=== PATIENT | female | born 1955 | race Caucasian/White ===

== ENCOUNTER 2016-10-22 07:10 | Emergency (ER) | payer BC, OTHER ==
[2016-10-22 07:23] VITALS: BP 120/91
--- NOTE | 2016-10-22 07:38 | EDM.PDOC ---
ED HPI GENERAL MEDICAL PROBLEM - General Chief Complaint: Upper Extremity Injury/Pain Stated Complaint: SHOOTING PAIN, LEFT ARM Time Seen by Provider: 10/22/16 07:32 Source of Information: Reports: Patient History Limitations: Reports: No Limitations - History of Present Illness INITIAL COMMENTS - FREE TEXT/NARRATIVE: 61 yo female presents with left arm pain since this morning. States that the pain woke her from her sleep. Described pain as sharp and radiates down arm at times and occasionally up to her neck. Denies chest pain or shortness of breath. Pain increases with lifting arm at times. No other complaints. 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: Reports: Aspirin, NSAIDS Left Upper Arm Pain Score (Numeric/FACES): 5 - Related Data Allergies Allergy/AdvReac Type Severity Reaction Status Date / Time No Known Allergies Allergy Verified 10/22/16 07:26 Home Meds: Home Meds FLUoxetine [PROzac] 20 mg PO DAILY 10/22/16 [History] Fexofenadine/Pseudoephedrine [Carolyn-D 12 Hour Tablet] 1 tab PO PRN 10/22/16 [ History] Levothyroxine [Synthroid] 100 mcg PO DAILY 10/22/16 [History] Zolpidem Tartrate [Zolpidem Tartrate] 10 mg PO PRN 10/22/16 [History] Past Medical History HEENT History: Reports: Impaired Vision - Past Surgical History Female Surgical History: Reports: Tubal Ligation Social & Family History - Tobacco Use Smoking Status *Q: Former Smoker Used Tobacco, but Quit: Yes Month Tobacco Last Used: 2012 - Recreational Drug Use Recreational Drug Use: No Review of Systems - Review of Systems Review Of Systems: ROS reveals no pertinent complaints other than HPI. ED EXAM, GENERAL - Physical Exam Exam: See Below Exam Limited By: No Limitations General Appearance: Alert, WD/WN, No Apparent Distress Eye Exam: Bilateral Eye: EOMI, PERRL Head: Atraumatic, Normocephalic Neck: Normal Inspection, Supple, Non-Tender, Full Range of Motion Respiratory/Chest: No Respiratory Distress, Lungs Clear, Normal Breath Sounds, No Accessory Muscle Use, Chest Non-Tender Cardiovascular: Normal Peripheral Pulses, Regular Rate, Rhythm, No Edema, No Gallop, No JVD, No Murmur, No Rub GI/Abdominal: Normal Bowel Sounds, Soft, Non-Tender, No Organomegaly, No Distention, No Abnormal Bruit, No Mass Extremities: Normal Inspection, Non-Tender, No Pedal Edema, Normal Capillary Refill, Arm Pain (nn tender to palpation but pain with movement), Limited Range of Motion Neurological: Alert, Oriented, CN II-XII Intact, Normal Cognition, Normal Gait, Normal Reflexes, No Motor/Sensory Deficits Skin Exam: Warm, Dry, Intact, Normal Color, No Rash Lymphatic: No Adenopathy Course - Vital Signs Last Recorded V/S: Last Vital Signs Temp 97.8 F 10/22/16 07:22 Pulse 88 10/22/16 07:22 Resp 16 10/22/16 07:22 BP 120/91 H 10/22/16 07:22 Pulse Ox 99 10/22/16 07:22 - Orders/Labs/Meds Orders: Active Orders 24 hr Category Date Time Status Cardiac Monitoring [RC] . DIRECTED Care 10/22/16 07:44 Active EKG Documentation Completion [RC] STAT Care 10/22/16 07:43 Active THYROXINE (T4) [REF] Stat Lab 10/22/16 07:52 Received Orphenadrine [Norflex] Med 10/22/16 08:30 Active 60 mg IM Q12H Sodium Chloride 0.9% [Saline Flush] Med 10/22/16 07:49 Active 10 ml FLUSH ASDIRECTED PRN Saline Lock Insert [OM.PC] Stat Oth 10/22/16 07:49 Ordered Medication Orders Orphenadrine Citrate (Norflex) 60 mg IM Q12H [facility] Last Admin: 10/22/16 08:47 Dose: 60 mg Sodium Chloride (Saline Flush) 10 ml FLUSH ASDIRECTED PRN PRN Reason: Keep Vein Open Last Admin: 10/22/16 08:48 Dose: 10 ml Labs: Laboratory Tests 10/22/16 10/22/16 10/22/16 Range/Units 07:52 07:52 07:52 WBC 5.4 (5.0-10.0) 10^3/uL RBC 4.95 (4.2-5.4) 10^6/uL Hgb 14.8 (12.0-16.0) g/dL Hct 44.9 (37.0-47.0) % MCV 90.7 (80-100) fL MCH 29.9 (27.0-34.0) pg MCHC 33.0 (33.0-35.0) g/dL Plt Count 223 (150-450) 10^3/uL Neut % (Auto) 57.4 (42.2-75.2) % Lymph % (Auto) 30.0 (20.5-50.1) % Loup % (Auto) 10.0 H (2-8) % Eos % (Auto) 2.2 (1.0-3.0) % Baso % (Auto) 0.4 (0.0-1.0) % PT (9.0-12.0) SEC INR (0.9-1.2) Sodium 140 (135-145) mmol/L Potassium 4.7 (3.6-5.0) mmol/L Chloride 106 (101-111) mmol/L Carbon Dioxide 27.0 (21.0-31.0) mmol/L Anion Gap 11.7 BUN 25 H (7-18) mg/dL Creatinine 1.0 (0.6-1.3) mg/dL Est Cr Clr Drug Dosing 56.71 mL/min Estimated GFR (MDRD) 57 BUN/Creatinine Ratio 25.00 Glucose 90 (74-105) mg/dL Calcium 9.0 (8.4-10.2) mg/dl Magnesium 2.0 (1.8-2.5) mg/dL Total Bilirubin 0.4 (0.2-1.0) mg/dL AST 24 (10-42) IU/L ALT 18 (10-60) IU/L Alkaline Phosphatase 50 (42-121) IU/L Creatine Kinase 72 (26-174) IU/L Creatine Kinase Index 1.8 (0-2.4) % CK-MB (CK-2) 1.30 (0.4-4.7) ng/mL Troponin I < 0.02 (0.00-0.02) ng/ml Total Protein 6.6 L (6.7-8.2) g/dl Albumin 4.0 (3.2-5.5) g/dl Globulin 2.6 Albumin/Globulin Ratio 1.54 10/22/16 Range/Units 07:52 WBC (5.0-10.0) 10^3/uL RBC (4.2-5.4) 10^6/uL Hgb (12.0-16.0) g/dL Hct (37.0-47.0) % MCV (80-100) fL MCH (27.0-34.0) pg MCHC (33.0-35.0) g/dL Plt Count (150-450) 10^3/uL Neut % (Auto) (42.2-75.2) % Lymph % (Auto) (20.5-50.1) % Loup % (Auto) (2-8) % Eos % (Auto) (1.0-3.0) % Baso % (Auto) (0.0-1.0) % PT 9.3 (9.0-12.0) SEC INR 0.9 (0.9-1.2) Sodium (135-145) mmol/L Potassium (3.6-5.0) mmol/L Chloride (101-111) mmol/L Carbon Dioxide (21.0-31.0) mmol/L Anion Gap BUN (7-18) mg/dL Creatinine (0.6-1.3) mg/dL Est Cr Clr Drug Dosing mL/min Estimated GFR (MDRD) BUN/Creatinine Ratio Glucose (74-105) mg/dL Calcium (8.4-10.2) mg/dl Magnesium (1.8-2.5) mg/dL Total Bilirubin (0.2-1.0) mg/dL AST (10-42) IU/L ALT (10-60) IU/L Alkaline Phosphatase (42-121) IU/L Creatine Kinase (26-174) IU/L Creatine Kinase Index (0-2.4) % CK-MB (CK-2) (0.4-4.7) ng/mL Troponin I (0.00-0.02) ng/ml Total Protein (6.7-8.2) g/dl Albumin (3.2-5.5) g/dl Globulin Albumin/Globulin Ratio Meds: Medications Generic Name Dose Route Start Last Admin Trade Name Freq PRN Reason Stop Dose Admin Orphenadrine Citrate 60 mg 10/22/16 08:30 10/22/16 08:47 Norflex IM 60 mg Q12H ALEK Administration Sodium Chloride 10 ml 10/22/16 07:49 10/22/16 08:48 Saline Flush FLUSH 10 ml ASDIRECTED PRN Administration Keep Vein Open Discontinued Medications Generic Name Dose Route Start Last Admin Trade Name Arcenioq PRN Reason Stop Dose Admin Ketorolac Tromethamine 30 mg 10/22/16 08:24 Toradol IM 10/22/16 08:25 ONETIME ONE Ketorolac Tromethamine 30 mg 10/22/16 08:46 10/22/16 08:47 Toradol IVPUSH 10/22/16 08:47 30 mg ONETIME ONE Administration - Radiology Interpretation Free Text/Narrative:: No acute findings - Re-Assessments/Exams Free Text/Narrative Re-Assessment/Exam: 10/22/16 09:08 Pt states pain has decreased. Departure - Departure Time of Disposition: 09:08 Disposition: Home, Self-Care 01 Condition: Good Clinical Impression: Radiculopathy of arm - Discharge Information Instructions: Radicular Pain Referrals: [id number] [Primary Care Provider] - Forms: ED Department Discharge Additional Instructions: Take medication as needed. Follow up with your PCP or in clinic as needed. return for worsening symptoms. Care Plan Goals: Flexeril #21 Motrin #30 - My Orders Last 24 Hours: My Active Orders 10/22/16 07:43 EKG Documentation Completion [RC] STAT 10/22/16 07:44 Cardiac Monitoring [RC] . DIRECTED 10/22/16 07:49 Sodium Chloride 0.9% [Saline Flush] 10 ml FLUSH ASDIRECTED PRN Saline Lock Insert [OM.PC] Stat 10/22/16 07:52 THYROXINE (T4) [REF] Stat 10/22/16 08:30 Orphenadrine [Norflex] 60 mg IM Q12H - Assessment/Plan Last 24 Hours: My Active Orders 10/22/16 07:43 EKG Documentation Completion [RC] STAT 10/22/16 07:44 Cardiac Monitoring [RC] . DIRECTED 10/22/16 07:49 Sodium Chloride 0.9% [Saline Flush] 10 ml FLUSH ASDIRECTED PRN Saline Lock Insert [OM.PC] Stat 10/22/16 07:52 THYROXINE (T4) [REF] Stat 10/22/16 08:30 Orphenadrine [Norflex] 60 mg IM Q12H
[2016-10-22] MEDS ORDERED: Sodium Chloride 0.9% 10 ML Syringe FLUSH PRN (07:49)
[2016-10-22 08:22] LABS: CHLORIDE,CL 106 mmol/L (101-111); SODIUM,NA 140 mmol/L (135-145)
[2016-10-22] MEDS ORDERED: Ketorolac 30 MG/ML SDV IM ONE (08:24)
[2016-10-22] MEDS ORDERED: Ketorolac 30 MG/ML SDV IVPUSH ONE (08:46)
--- NOTE | 2016-10-25 10:52 | EKG ---
10/22/2016 - VERONICA LÓPEZ - This 12-lead EKG, shows a normal sinus rhythm with a ventricular rate of 69. Normal axis and intervals. No acute ST-segment or T-wave changes. [facility] /[id number]
== END 2016-10-22 09:20 | disposition home or self-care (01) ==
LOC: DL.ED 07:10
DX: M54.12 Radiculopathy, cervical region (principal); Z79.899 Other long term (current) drug therapy; Z98.51 Tubal ligation status; Z87.891 Personal history of nicotine dependence
CPT/HCPCS: 36415; 71020; 73030; 73060; 80053; 82550; 82553; 83735; 84436; 84484; 85025; 85610; 93005; 96372; 96374; 99284; J1885; J2360; J7050

== ENCOUNTER 2024-07-10 11:55 | Emergency (ER) | payer BC, MEDICARE ==
[2024-07-10] MEDS ORDERED: Sodium Chloride 0.9% 10 ML Syringe FLUSH PRN (12:24)
[2024-07-10] MEDS: GI Cocktail Oral Solution 30 ML PO ONE (12:28)
[2024-07-10 12:43] LABS: HEMATOCRIT 43.2 % (37.0-47.0); HEMOGLOBIN 14.5 g/dL (12.0-16.0); LYMPHOCYTES PERCENT AUTO 29.7 % (20.5-50.1); MEAN CORPUSCULAR HEMOGLOBIN 30.7 pg (27.0-34.0); MEAN CORPUSCULAR HGB CONC 33.6 g/dL (33.0-35.0); MEAN CORPUSCULAR VOLUME 91.3 fL (80-100); MONOCYTES PERCENT AUTO 6.6 % (2-8); NEUTROPHILS PERCENT AUTO 63.7 % (42.2-75.2); PLATELET COUNT,PLT 272 10^3/uL (150-450); RED BLOOD CELL COUNT 4.73 10^6/uL (4.2-5.4); WHITE BLOOD CELL COUNT,WBC 5.5 10^3/uL (5.0-10.0)
[2024-07-10 12:59] LABS: INR 0.9 (0.9-1.2); PROTHROMBIN TIME 9.5 SEC (9.0-12.0); PTT,PARTIAL THROMBOPLSTIN TIME 25.3 SEC (22.0-34.0)
[2024-07-10 13:03] LABS: APPEARANCE,URINE CLEAR (CLEAR); BILIRUBIN,URINE NEGATIVE (NEGATIVE); COLOR,URINE YELLOW (YELLOW); GLUCOSE,URINE NEGATIVE (NEGATIVE); KETONES,URINE NEGATIVE (NEGATIVE); LEUKOCYTE ESTERASE,URINE NEGATIVE (NEGATIVE); NITRITE,URINE NEGATIVE (NEGATIVE); OCCULT BLOOD,URINE MODERATE (NEGATIVE); PROTEIN,URINE NEGATIVE (NEGATIVE); UROBILINOGEN,URINE 0.2 mg/dL (0.2-1.0)
[2024-07-10 13:03] LABS: A/G RATIO 1.3; ALANINE AMINOTRANSFERASE,ALT 17 U/L (14-59); ALBUMIN 3.7 g/dL (3.4-5.0); ALKALINE PHOSPHATASE 63 U/L (46-116); ASPARTATE AMNIOTRANSFERASE,AST 14 U/L (15-37); BILIRUBIN TOTAL 0.3 mg/dL (0.2-1.0); BLOOD UREA NITROGEN,BUN 19 mg/dL (7-18); BUN/CREATININE RATIO 18.4 (No establ ref range); CALCIUM 9.2 mg/dL (8.5-10.1); CARBON DIOXIDE,CO2 27 mmol/L (21-32); CHLORIDE,CL 100 mmol/L (98-107); CREATININE 1.03 mg/dL (0.55-1.02); EST CRCL DRUG DOSING (CG) 47.21 mL/min; GLUCOSE RANDOM 138 mg/dL (70-99); LIPASE 29 U/L (16-77); PROTEIN TOTAL,TP 6.6 g/dL (6.4-8.2); SODIUM,NA 138 mmol/L (136-145)
[2024-07-10 13:06] LABS: C-REACTIVE PROTEIN < 0.50 ng/dL (<=0.50); ESTIMATED GFR 60 mL/min (>=60)
[2024-07-10 13:08] LABS: LACTIC ACID 1.6 mmol/L (0.4-2.0)
[2024-07-10 13:13] LABS: EPITHELIAL CELLS,URINE RARE /HPF (NOT SEEN)
[2024-07-10 13:14] LABS: BACTERIA,URINE RARE /HPF (0-FEW/HPF); RBC,URINE 20-30 /HPF (0-5); YEAST,URINE FEW /HPF (NOT SEEN)
[2024-07-10 13:15] LABS: WBC,URINE NOT SEEN /HPF (0-5/HPF)
[2024-07-10] MEDS: Pantoprazole 40 MG Vial IVPUSH ONE (14:40)
[2024-07-10 14:54] VITALS: BP 126/82; PULSE 86
== END 2024-07-10 14:53 | disposition home or self-care (01) ==
LOC: DL.ED 11:55
DX: K21.9 Gastro-esophageal reflux disease without esophagitis (principal); K59.00 Constipation, unspecified; E03.9 Hypothyroidism, unspecified; Z88.1 Allergy status to other antibiotic agents; Z79.890 Hormone replacement therapy; Z79.899 Other long term (current) drug therapy
CPT/HCPCS: 36415; 71045; 74019; 80053; 81001; 83605; 83690; 84484; 85025; 85610; 85730; 86140; 93005; 96374; 99284; A9270; J2470; 93010

== ENCOUNTER 2024-08-02 07:03 | Day surgery (SDC) | payer MEDICARE, OTHER ==
[~2024-08-02 07:03] MED LIST: Dextrose 5%-0.45% NaCl 1,000 ML IV SCH; Propofol 200 MG/20 ML SDV ONE
[2024-08-02] MEDS ORDERED: Lactated Ringers 1,000 ML IV ONE (07:04)
[2024-08-02] MEDS ORDERED: Dextrose 5%-0.45% NaCl 1,000 ML IV ONE (07:04)
[2024-08-02] MEDS ORDERED: Lidocaine 2% 20 ML MDV NERVRT ONE (07:04)
[2024-08-02] MEDS ORDERED: Propofol 200 MG/20 ML SDV IV ONE (07:04)
[2024-08-02] MEDS: Lactated Ringers 1,000 ML IV SCH (07:31)
[2024-08-02 09:26] VITALS: BP 123/86; PULSE 72
== END 2024-08-02 09:54 | disposition home or self-care (01) ==
LOC: DL.ENDO 07:03
PROVIDERS: ATTEND Internal Medicine Gastroenterology
DX: R10.13 Epigastric pain (principal); D12.6 Benign neoplasm of colon, unspecified; F41.1 Generalized anxiety disorder; Z88.1 Allergy status to other antibiotic agents
CPT/HCPCS: 88305; J2003; J2704; J7120